=== PATIENT | female | born 1930 | race Caucasian/White ===

== ENCOUNTER → 2016-09-26 | Outpatient (CLI) | payer MEDICARE ==
[~2016-09-26] MED LIST: AMBIEN CR12.5 MG PO; ASPIRIN 81MG TA81 MG PO; CENTRUM SILVER1 TAB PO; COUMADIN1 MG PO; FUROSEMIDE40 MG PO; KEFLEX 500MG.500 MG PO; LASIX 40MG. TAB40 MG PO; LEVAQUIN750 MG PO; LEVOXYL0.125 MG PO; LIBRIUM 10MG. C10 MG PO; LISINOPRIL AND1 TAB PO; MACROBID 100MG100 M1 PO; OXYCODONE-ACETA1 TAB PO; PERCOCET 5/3251 EACH PO; PERCOCET1 TA1 PO; TRICOR 145 MG145 MG NG; VITAMIN D31000 IU PO; WARFARIN SOD5 M1 PO; WARFARIN SODIUM5 MG PO; ZOLPIDEM TART12.5 MG PO; ZOLPIDEM10 M1 PO
--- NOTE | 2016-09-28 05:54 | RADIOLOGY REPORT PS360 ---
MRI-L-SPINE W/O, MRI-3D RENDERING/MYELOGRAM HISTORY: Back pain, lower extremity weakness, right hip and leg pain, lumbar stenosis BACK PAIN, LOWER EXTREMITY WEAKNESS ORDERING PHYSICIAN: SATURNINO CASTRO PATIENT AGE: 85 years COMPARISON: 04/06/2016 TECHNIQUE: Standard multiplanar multiecho sequences are performed without contrast. 3-D MIP and myelographic images are also rendered and reviewed FINDINGS: The spinal cord ends at the L1 level. Moderate dextroscoliosis once again noted and unchanged. Multilevel spondylosis of the lumbar spine once again noted with multiple bulging discs, degenerative disc disease, with facet arthropathy. T11-T12: Unremarkable. T12-L1: 3 mm anterolisthesis of T12 on L1. There is bulging disc eccentric to the right with right foraminal narrowing. There is hypertrophic change along the posterior lamina on the right causing severe right lateral recess narrowing along with canal stenosis and some impingement upon the cord posteriorly and on the right. This is not definitely changed L1-L2: Degenerative disc disease with bulging disc along with ligamentum flavum and facet hypertrophy with mild bilateral lateral recess narrowing. L2-L3: Severe degenerative disc disease with bulging disc with prominent left paracentral and foraminal disc protrusion which is causing severe left-sided foraminal narrowing and left lateral recess narrowing with impingement upon the left L3 nerve root. Not significantly changed. L3-L4: Severe degenerative disc disease with bulging disc along with moderate facet and ligamentum flavum hypertrophy with transverse canal stenosis, bilateral lateral recess narrowing, and severe bilateral foraminal narrowing somewhat greater on the left. Not significantly changed. L4-L5: Moderate to severe degenerative disc disease with a small left paracentral disc protrusion/herniation along with facet and ligamentum flavum hypertrophy with canal stenosis, bilateral lateral recess narrowing, and bilateral foraminal narrowing. This is not significantly changed. L5-S1: Moderate-sized bulging disc eccentric to the right along with facet ligamentum hypertrophy with canal stenosis and moderate right-sided foraminal narrowing and lateral recess narrowing. No significant change. There are multiple renal cyst noted. In addition, there is a 15 mm hypointense T2 lesion projecting off the lateral aspect of the left kidney and a 14 mm hypointense T2 lesion projecting off the lateral aspect of the right kidney. Unchanged probably due to hemorrhagic cysts. IMPRESSION: 1. Abnormal MRI of the lumbar spine with multilevel degenerative disc disease, lumbar scoliosis, canal stenosis, foraminal stenosis, lateral recess narrowing with bulging and protruding discs as detailed at each level above. Please see above for description at each lumbar level 2. Bilateral renal cysts 3. Overall no significant change compared to 04/06/2016
== END ==
LOC: RAD 12:57
DX: M54.5 Low back pain (principal); M62.81 Muscle weakness (generalized)

== ENCOUNTER 2017-02-11 22:41 | Emergency (ER) | payer MEDICARE ==
[~2017-02-11] VITALS: Ht 165.1 cm; Wt 84.4 kg
--- NOTE | 2017-02-11 23:16 | Emergency Room Report ---
History of Present Illness Time Seen by [id number] Presenting Problem in Triage Pt arrived:Ambulance Stretcher Presenting Problem:FELL AND HIT BACK OF HEAD, HAS PUNCTURE WOUND TO BACK OF HEAD , NO LOC. Onset of symptoms date/time:02/11/1701/20/2200 or onset unknown for: Treatment Prior to Arrival: RECEIVER DISPATCHER Provided by: Sepsis Risk Assessment: Temp: 99.1 B/P: 147/96 MAP: 113 Pulse: 78 Resp: 20 Recent fever? N Clinical Suspician of Infection? N Mental Status: 1 - Regular (Normal Baseline) Sepsis Risk:Low Sepsis Risk Have you (or family members/close friends) recently traveled outside the [place]? N If Yes, where/when: Have you had exposure to infectious disease within the past month? N TB? Other? Specify: Source patient, RN notes reviewed, family, EMS, old records Exam Limitations no limitations Comment trip type fall with head and neck pain- no loc and she is on coumadin Cardiac Chest Pain Chest pain indicative of cardiac No Timing/Duration this evening Severity moderate ALLERGIES Coded Allergies: morphine (Severe, NA-NAUSEA/VOMITING 08/31/15) hydrocodone (From LORTAB) (Mild, HEADACHE 08/31/15) Sulfa (Sulfonamide Antibiotics) (Mild, NA-NAUSEA 08/31/15) Home Medications Reported Medications Chlordiazepoxide Hcl (Librium 10MG. Capsule (Generic)) 10 MG PO BIDP PRN ANXIETY Zolpidem Tartrate (Zolpidem Tartrate ER) 12.5 MG PO QHS #30 Warfarin Sodium 5 MG PO DAILY #30 OXYCODONE HCL/ACETAMINOPHEN (Oxycodone-Acetaminophen 5-325) 1 TAB PO BIDP PRN BACK PAIN #60 Furosemide (Furosemide 40MG) 40 MG PO DAILY History Medical History General CAD? No Angina: No [place]: No Hypertension? Yes Hyperlipidemia? Yes CHF? No DVT? Yes PE? No COPD? No Asthma? No Anemia? No GERD? No Gastric ulcers? No GI Bleed? No Hernia? No Thyroid Problems? Yes Hypothyroidism? Yes CVA? No Seizures? No Diabetes? No Renal Insuffiency? Yes End Stage Renal Disease? Yes UTI? Yes Stones? No GB Disease: Yes Nephritic Syndrome? No Asplenia? No Hepatitis? No Sickle Cell Disease? No Arthritis? Yes Cataracts? Yes Glaucoma? No MRSA? No TB? No Anxiety? Yes Depression? No Cancer? Yes Site: SKIN CA-FACE More? No Immunization Hx DT/Tetanus Unknown Flu [id number] Flu Season Pneumonia Received In Past Surgical Hx Previous Surgery?Y Tubal Ligation D & C LEFT KNEE ARTHROSCOPY BILAT CATARACTS CHOLECYSTECTOMY BREAST (CYST) DEREK KNEE REPLACEMENT SKIN CA REMOVED FACE 2016 Family History Family Hx Diabetes No CAD Yes Hypertension Yes Hyperlipidemia Yes Cancer Yes TB No Social History Smoking Hx Smoker: Never Smoker Tobacco: No Type Cigarettes Alcohol Alcohol: No Drugs none Review of Systems All Other Systems Reviewed and Negative Constitutional denies fever Eyes denies drainage ENT denies: ear discharge, epistaxis, throat pain. Respiratory denies cough, denies shortness of breath, denies wheezing Cardiovascular denies chest pain, denies syncope Gastrointestinal denies abdominal pain, denies diarrhea, denies vomiting Genitourinary denies: dysuria, frequency, hesitancy, hematuria. Musculoskeletal denies back pain, denies joint pain, denies joint swelling, denies neck pain Skin denies rash Psychiatric/Neurological denies headache, denies seizure Physical Exam Vital Signs Vital Signs Date Time Temp Pulse Resp B/P Pulse O2 O2 Flow FiO2 Ox Delivery Rate 02/12 0109 79 20 138/79 92 02/12 0010 99.1 77 20 134/90 95 02/11 2244 99.1 78 20 147/96 100 - WBC >12,000 or <4,000 or 10% bands? 2 or more SIRS Criteria Met? B/P:138/79 MAP:113 Creatinine >2.0? UA output<0.5ml/kg/hr for 2 hrs? Platelet count >100,000? Lactate >2.0mmol/1? INR >1.2 or PTT > than 60 sec? Evidence of Organ Dysfunction? Provider documented clinical suspician of infection? N Sepsis Criteria Count: 1 Sepsis Risk: Low Sepsis Risk General Appearance no apparent distress Eye Exam - bilateral eye PERRL, bilateral eye EOMI Ear, Nose, Throat normal ENT inspection Neck tender lateral Respiratory Status No: respiratory distress. Cardiovascular regular rate/rhythm Peripheral Pulses Pulses normal Yes Gastrointestinal soft Extremities normal inspection, pelvis stable Strength 4 Upper Ext (L), 4 Upper Ext (R), 4 Lower Ext (L), 4 Lower Ext (R) Neurologic alert, business applications developer II-XII nml as tested, no motor/sensory deficits Glascow Coma Scale Glascow Coma Scale Response Value EYE response: 4 Spontaneously 4 MOTOR response: 6 OBEYS 6 VERBAL response: 5 Oriented & Converses 5 Total 15 Reflexes Reflexes normal No Mental status normal mood/affect Skin laceration(s), 1 cm scalp lac Medical Decision Making LABS/Meds/Orders Pt receiving controlled substance in ED? No Results/Orders Laboratory Tests 02/11/172319: Sodium 141, Potassium 3.8, Chloride 106, Carbon Dioxide 28, BUN 26 H, Creatinine 0.9, Estimated Creat Clear 62, Estimated GFR (MDRD) 60, Glucose 104, Calcium 9.8, Total Bilirubin 0.4, AST 11 L, ALT 16, Alkaline Phosphatase 75, Total Protein 7.7, Albumin 4.1, Globulin 3.6 H, Albumin/Globulin Ratio 1.1, PT 28.1 H, INR 2.58 H, WBC 6.9, RBC 5.00, Hgb 14.5, Hct 43.7, MCV 87.5, RDW 14.2, Plt Count 130 L, MPV 8.8, Gran % 63.0, Gran # 4.4, Lymphocytes % 26.3, Monocytes % 6.2, Eosinophils % 3.8, Basophils % 0.6, Lymphocytes # 1.8, Monocytes # 0.4, Eosinophils # 0.3, Basophils # 0.0, PUBS MCHC 33.1, MCH 29.0 Current Medication Orders Sig/Praneeth Start time Last Medication Dose Route Stop Time Status Admin Sodium Chloride 10 ML PRN PRN 02/11 2315 AC IV 02/12 2307 Lidocaine HCl 0 .STK-MED ONE 02/11 2303 DC .ROUTE Orders Procedure Date/time Status DIET-NOTHING BY MOUTH 02/[address] SCAN REQ 02/[address] CERVICAL SPINE W/O CONT. 02/12 UNK Active PELVIS AP ONLY 02/12 2320 Active IV SALINE LOCK 02/11 2307 Active PROTHROMBIN TIME 02/11 2307 Complete CBC WITH AUTO DIFF 02/11 2307 Complete CHEM 12 PROFILE 02/11 2307 Complete CHEST(2 VIEWS-NOT PORTABLE) 02/12 2304 Active CERVICAL SPINE 4 OR 5 VIEWS 02/[address] HEAD REQ 02/[address] HEAD W/O CONTRAST 02/11 UNK Active XRAY/CT/US XRAY/CT/US 1 XRAY chest, pelvis XR interpretation by reviewed by me Xray Results no fracture seen XRAY/CT/US 2 CT head, C-spine CT interpretation by discussed w/radiologist Time results known: 0023 CT Results no fracture seen Procedures Laceration/Wound Repair Laceration/Wound Repair Risks/benefits discussed with pt/guardian? Yes Tetanus status not up to date Wound Location head Wound Length (cm) 1 Wound's Depth, Shape sucutaneous tissue Wound Explored no FB identified Risk of retained FB explained to pt/guardian? Yes Irrigated w/ Saline (ccs) 0 Wound Prep Hibiclens, Saline Anesthesia 1% Lidocaine, Local Volume Anesthetic (ccs) 2 Wound Debrided none Wound Repaired With michele Layer Closure No Total Number Sutures 5 Sterile Dressing Applied Yes Splint Applied No Sling Applied No Departure Departure Time of Disposition 0119 Disposition DC Home or Self Care(routine) Clinical Impression Primary Impression: Head contusion Qualifiers: Encounter type: initial encounter Contusion of head detail: unspecified part of head Qualified Code: S00.93XA - Contusion of unspecified part of head, initial encounter Secondary Impressions: Cervical strain, acute Qualifiers: Encounter type: initial encounter Qualified Code: S16.1XXA - Strain of muscle, fascia and tendon at neck level, initial encounter Scalp laceration Qualifiers: Encounter type: initial encounter Qualified Code: S01.01XA - Laceration without foreign body of scalp, initial encounter Condition STABLE Referrals Papito SMITH,A.C. (Family) Patient Instructions DI for Laceration Repair -- Michele Additional Instructions michele out 8-10 days and see pcp for follow up Discharge Counseling Counseled pt/family regarding diagnosis, test results, follow up needs ED Critical Care Critical Care No at 0142
[2017-02-11 23:30] LABS: HEMOGLOBIN 14.5 g/dL (12.2-16.2); LYMPH # 1.8 K/mm3 (0.7-4.5); LYMPH % 26.3 % (10-50.0)
[2017-02-12 01:47] VITALS: BP 138/79
--- NOTE | 2017-02-12 09:57 | RADIOLOGY REPORT PS360 ---
CT HEAD W/O CONTRAST HISTORY: Headache/pain following injury FALL, HEAD INJURY ORDERING PHYSICIAN: Radha Carpenter MD PATIENT AGE: 86 years COMPARISON: 02/21/2015 TECHNIQUE: Axial images obtained without contrast. Brain and bone windows reviewed. FINDINGS: No midline shift, mass effect, intracranial hemorrhage, hydrocephalus, or extra-axial fluid collection is evident. There is mild generalized atrophy. Skin clips are present in the right parietal scalp vertex area with small scalp hematoma. The calvarium has an unremarkable appearance. No mastoid effusion. The visualized paranasal sinuses are unremarkable. IMPRESSION: 1. No acute intracranial findings. 2. Small right parietal scalp hematoma
--- NOTE | 2017-02-12 09:57 | RADIOLOGY REPORT PS360 ---
CT CERVICAL SPINE W/O CONT INDICATION: Neck pain following injury, abnormal radiograph FELL ORDERING PHYSICIAN: Radha Crapenter MD PATIENT AGE: 86 years COMPARISON: None TECHNIQUE: Axial images are obtained without contrast. Sagittal and coronal reformatted images are reviewed as well. FINDINGS: There is extensive spondylosis of the cervical spine with a drain disc disease, facet arthropathy, and uncovertebral arthropathy. No acute fracture or dislocation evident. C2-C3: Degenerative disc disease. C3-C4: 4 mm anterolisthesis of C3 with uncovertebral and facet hypertrophy with bilateral foraminal narrowing. C4-C5: Severe right-sided facet hypertrophy with right-sided foraminal narrowing C5-C6: Severe degenerative disc disease with endplate hypertrophic change with bilateral foraminal narrowing and slight reversal of lordosis. C6-C7: Severe degenerative disc disease with disc osteophyte complex posteriorly and hypertrophic change anteriorly with bilateral foraminal narrowing. C7-T1: Degenerative disc disease. Lung apices are clear. Scattered small nodes are present in the mediastinum and neck. There is an air-fluid level within a distended esophagus IMPRESSION: 1. No acute fracture. 2. Severe cervical spondylosis. 3. Mildly distended fluid-filled esophagus which may be due to distal obstruction, extensive reflux, or achalasia. .
--- OUTSIDE RECORDS SUMMARY | 2017-02-16 03:59 | External Medical Summary Rpt | CCD ---
Author Author NUZH[employer] Address Unknown Phone Purpose Continuity of Care Document - through 2016
--- OUTSIDE RECORDS SUMMARY | 2017-02-16 03:59 | External Medical Summary Rpt | CCD ---
Author Author NUZHAT Address Unknown Phone [email or web address] Purpose Continuity of Care Document - through 2016
--- OUTSIDE RECORDS SUMMARY | 2017-02-16 04:00 | External Medical Summary Rpt | CCD ---
Author Author , [facility] Organization [employer] Address Unknown Phone [email or web address] Immunization Name Date Rout CVX Reac Dose Comm Prov Is Faci e tion ent ider Refu lity Give sed n Infl 09-2 135 999 Hist D203 No D203 uenz 0-20 oric 45 45 a, 16 al High Info rmat Dose ion - Sour ce Unsp ecif ied
--- OUTSIDE RECORDS SUMMARY | 2017-02-16 04:00 | External Medical Summary Rpt ---
Author Author NUZHAT Lorenzo, NUZHAT Lorenzo Organization [employer] Address Unknown Phone Unavailable
--- OUTSIDE RECORDS SUMMARY | 2017-02-16 04:00 | External Medical Summary Rpt | CCD ---
Author Author [employer] Organization [employer] Address Unknown Phone Unavailable Purpose Continuity of Care Document - through 2016
--- OUTSIDE RECORDS SUMMARY | 2017-02-16 04:00 | External Medical Summary Rpt | CCD ---
Author Author , [facility]ZH[employer] Organization [employer] Address Unknown Phone [email or web address] Immunization Name Date Rout CVX Reac Dose Comm Prov Is Faci e tion ent ider Refu lity Give sed n Infl 09-2 135 999 Hist D203 No D203 uenz 0-20 oric 45 45 a, 16 al High Info rmat Dose ion - Sour ce Unsp ecif ied
== END 2017-02-12 01:47 | disposition home or self-care (01) ==
LOC: ER 22:41
PROVIDERS: Emergency Medicine
PROC: 0HQ0XZZ Repair Scalp Skin, External Approach (ICD-10-PCS; principal; 2017-02-11)
DX: S01.01XA Laceration without foreign body of scalp, initial encounter (principal); S00.93XA Contusion of unspecified part of head, initial encounter; S16.1XXA Strain of muscle, fascia and tendon at neck level, initial encounter; I10 Essential (primary) hypertension; N28.9 Disorder of kidney and ureter, unspecified; Z88.6 Allergy status to analgesic agent; Z88.2 Allergy status to sulfonamides